=== PATIENT | male | born 1970 | race Caucasian/White ===

== ENCOUNTER 2017-12-16 09:36 | Emergency (ER) | payer OTHER ==
[~2017-12-16] VITALS: Ht 185.4 cm; Wt 103.0 kg
[~2017-12-16 09:36] MED LIST: XANAX1 MG PO
[2017-12-16 10:35] LABS: ABSOLUTE BASOPHIL COUNT 0.1 /CUMM (0.0-0.2); ABSOLUTE EOSINOPHIL COUNT 0.2 /CUMM (0.0-0.7); ABSOLUTE GRANULOCYTE CT 11.4 /CUMM (1.4-6.5); ABSOLUTE LYMPH COUNT 1.9 /CUMM (1.2-3.4); BASOPHIL % 0.4 % (0.0-2.0); EOSINOPHIL % 1.6 % (0-5); GRANULOCYTE % 78.1 % (42.2-75.2); HEMATOCRIT 47.5 % (42-52); MEAN CORPUSCULAR HGB 30.9 PG (27.0-31.0); MEAN CORPUSCULAR VOLUME 90.8 FL (80.0-94.0); MEAN PLATELET VOLUME 10.2 FL (7.4-10.4); PLATELET COUNT 224 /CUMM (130-400); RBC DISTRIBUTION WIDTH 13.6 % (11.5-14.5); RED BLOOD CELL CT 5.23 /CUMM (4.70-6.10); WHITE BLOOD CELL COUNT 14.6 /CUMM (4.8-10.8)
[2017-12-16] MEDS ORDERED: PREDNISONE20 M1 PO (11:16)
[2017-12-16] MEDS ORDERED: XANAX1 M1 PO (11:17)
[2017-12-16] MEDS ORDERED: SEROQUEL50 M1 PO (11:17)
[2017-12-16] MEDS ORDERED: FLUOXETINE HCL20 M2 PO (11:18)
--- NOTE | 2017-12-16 13:14 | ED GENERAL ADULT ---
History of Present Illness General Chief Complaint: Nausea, Vomiting, Diarrhea Stated Complaint: N/V/D Source: patient Exam Limitations: no limitations Vital Signs & Intake/Output Vital Signs & Intake/Output Vital Signs Date Time Temp Pulse Resp B/P B/P Pulse O2 O2 Flow FiO2 Mean Ox Delivery Rate 12/16 1418 97.6 54 18 112/61 97 Room Air 12/16 1007 Room Air 12/16 0948 96.4 54 18 142/77 99 Room Air Room Air Allergies Coded Allergies: NO KNOWN ALLERGIES (NONE 12/16/17) Reconcile Medications Alprazolam (Xanax) 1 MG TABLET 1 TAB PO 4 TIMES/DAY ANXIETY (Reported) Fluoxetine HCl 20 MG CAPSULE 1 CAP PO DAILY MENTAL HEALTH (Reported) Metoclopramide HCl (Reglan) 10 MG TABLET 1 TAB PO 4 TIMES/DAY PRN NAUSEA 30 minutes before meals and bedtime Oxycodone HCl/Acetaminophen (Percocet 5-325 MG Tablet) 5 MG-325 MG TABLET 1 TAB PO 4 TIMES/DAY PRN PAIN Prednisone 20 MG TABLET 1 TAB PO DAILY STEROID (Reported) Quetiapine Fumarate (Seroquel) 50 MG TABLET 1 TAB PO QPM SLEEP (Reported) Triage Note: PT TO ED "I HAD REALLY BAD POISON MYLENE AND THEY JUST UPPED MY PREDNISONE, HAD BAD HEADACHE SINCE LAST NIGHT, POUNDING HEADACHE, N/V/D SINCE LAST NIGHT". Triage Nurses Notes Reviewed? yes Onset: Abrupt Duration: day(s): (2-3), constant, continues in ED, getting worse Timing: single episode today Injury Environment: home Severity: mild, moderate Severity Numbers: 10 No Modifying Factors: none HPI: 47-year-old male history of anxiety and depression presents for evaluation of headaches nausea and vomiting. Patient reports he is currently being treated for poison mylene with prednisone 60 mg which she's been taking for several days. He reports since taking this he has had severe nausea and multiple episodes of vomiting and headaches. He reports the headache is located in the left sided temporal and parietal area and does not radiate. Described as pressure. He has been taking Tylenol at home without any improvement. He denies any slurred speech changes in vision fever abdominal pain back pain neck pain or head trauma. He's never had headaches like this in the past. He states his poison mylene has improved significantly since being on the prednisone. He also reports associated insomnia and agitation since starting steroids. (Narciso Girard) Past History Travel History Traveled to [place] past 21 day No Medical History Any Pertinent Medical History? see below for history Neurological: NONE EENT: NONE Cardiovascular: NONE Respiratory: NONE Gastrointestinal: NONE Hepatic: NONE Renal: NONE Musculoskeletal: NONE Psychiatric: anxiety, depression Endocrine: NONE Blood Disorders: NONE Cancer(s): NONE POLYSOMNOGRAPHY TECHNICIAN/Reproductive: NONE Surgical History Surgical History: non-contributory Psychosocial History What is your primary language Cymraes Tobacco Use: Never used ETOH Use: denies use Illicit Drug Use: denies illicit drug use Family History Hx Contributory? No (Narciso Girard) Review of Systems Review of Systems Constitutional: Reports: no symptoms. EENTM: Reports: no symptoms. Respiratory: Reports: no symptoms. Cardiovascular: Reports: no symptoms. GI: Reports: see HPI, nausea, vomiting. Genitourinary: Reports: no symptoms. Musculoskeletal: Reports: no symptoms. Skin: Reports: no symptoms. Neurological/Psychological: Reports: headache. Hematologic/Endocrine: Reports: no symptoms. Immunologic/Allergic: Reports: no symptoms. All Other Systems: Reviewed and Negative (Narciso Girard) Physical Exam Physical Exam General Appearance: well developed/nourished, no apparent distress, alert, awake Head: atraumatic, normal appearance, no tenderness over the temporal areas Eyes: Bilateral: normal appearance, PERRL, EOMI. 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 No CVA/TIA Diagnosis: No Sepsis Present: No Sepsis Focused Exam Completed? No (Narciso Girard) Progress Differential Diagnoses I considered the following diagnoses in my evaluation of the patient: [Migraine headache, cluster headache, temporal arteritis, intracranial hemorrhage intracranial mass aneurysm medication side effect] Plan of Care: Orders Procedure Date/time Status URINALYSIS 12/16 101 Complete TROPONIN LEVEL 12/16 101 Complete LIPASE 12/16 101 Complete WESTERGREN SED RATE 12/16 1010 Complete C-REACTIVE PROTEIN 12/16 101 Complete COMPREHENSIVE METABOLIC PANEL 12/16 101 Complete CBC WITHOUT DIFFERENTIAL 12/16 1009 Complete EKG 12/16 101 Active Laboratory Tests 12/16/17 1138: Urine Color YEL, Urine Clarity CLEAR, Urine pH 8.5 H, Ur Specific Cartwright 1.015 , Urine Protein NEG, Urine Ketones NEG, Urine Nitrite NEG, Urine Bilirubin NEG, Urine Urobilinogen 0.2, Ur Leukocyte Esterase NEG, Ur Microscopic EXAM NOT REQUIRED, Urine Hemoglobin NEG, Urine Glucose NEG 12/16/17 1025: Anion Gap 10, Estimated GFR > 60, BUN/Creatinine Ratio 18.9, Glucose 115 H, Calcium 9.6, Total Bilirubin 0.7, AST 19, ALT 27, Alkaline Phosphatase 102, Troponin I < 0.01, C-Reactive Prot, Quant < 0.5, Total Protein 7.6, Albumin 4.6, Globulin 3.0, Albumin/Globulin Ratio 1.5, Lipase 117, CBC w Diff NO MAN DIFF REQ , RBC 5.23, MCV 90.8, MCH 30.9, MCHC 34.0, RDW 13.6, MPV 10.2, Gran % 78.1 H, Lymphocytes % 12.9 L, Monocytes % 7.0, Eosinophils % 1.6, Basophils % 0.4, Absolute Granulocytes 11.4 H, Absolute Lymphocytes 1.9, Absolute Monocytes 1.0 H, Absolute Eosinophils 0.2, Absolute Basophils 0.1, ESR Westergren 3 Patient is here for evaluation of headaches nausea and vomiting. He currently is on steroids for poison mylene which started before symptoms started. He reports a left-sided temporal and parietal headache has been going on for 2 days and getting worse. The pain as 10 out of 10. Patient appears uncomfortable. He is neurologically intact. Labs EKG CTA ordered. Patient medicated with Reglan and Benadryl fluids and IV Tylenol. Lab work is unremarkable other than a mildly elevated white count which could be related to vomiting and steroids. Patient was also medicated with Toradol for additional headache. CTA of the head is negative for acute bleed but there is a 2.1 cm intraosseous mass over the left-sided parietal area near patient has pain. 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 Case was discussed with Dr. MCMAAHN neurosurgery who reviewed the CAT scan does not feel patient requires emergent treatment it was recommended he follow up with neurosurgery as an outpatient. Patient was given prescriptions for Reglan and Percocet to use for symptom control. He states he is feeling better. He remains neurologically intact. Discussed return precautions in detail patient agrees the plan Diagnostic Imaging: Viewed by Me: CT Scan. Discussed w/RAD: CT Scan. Radiology Impression: PATIENT: EFRAIN SCHUMACHER PRESENT AGE: 47 PATIENT ACCOUNT NO: [id number] : 70 LOCATION: [facility] ORDERING PHYSICIAN: Narciso DUNCAN SERVICE DATE: 12/16/17 EXAM TYPE: CAT - CT HEAD ANGIOGRAM EXAMINATION: CT HEAD ANGIOGRAM CLINICAL INFORMATION: Acute onset severe headache with vomiting. COMPARISON: No relevant prior imaging. TECHNIQUE: Sergeant At Arms images were obtained. A CT angiogram of the head was performed in the arterial phase after the intravenous administration of 95 mL Optiray 320. Pre and delayed postcontrast images of the head were also obtained. MIP reconstructions were generated in multiple orientations at the acquisition workstation. Multiple three-dimensional surface rendered images and maximum intensity projection images were generated on a dedicated 3-D lab workstation. Arterial stenoses are measured in accordance with NASCET criteria or similar method if applicable. Total exam dose-length product 2182.99 mGy-cm FINDINGS: Head: There is a somewhat heterogeneously enhancing intraosseous mass involving the left parietal bone near the coronal suture measuring 2.1 cm in maximal transaxial dimension. Its medial surface is dome-shaped and it bulges into the intracranial compartment. This finding is for instance best illustrated on axial image 34 of 72 series 5. There are no abnormal changes within the subcortical white matter of the adjacent brain. Otherwise no abnormal mass or enhancement visualized elsewhere within the intracranial compartment. No substantial intracranial mass effect and no midline shift. There is no acute hemorrhage. Headley-white matter differentiation is grossly preserved and there is no evidence of acute territorial infarct. CT angiogram head: The intracranial internal carotid arteries are normal. Intradural vertebral artery segments and basilar artery are normal. Anterior, middle, and posterior cerebral artery complexes are unremarkable. No high-grade stenosis or proximal occlusion is visualized within the intracranial vessels. IMPRESSION: There is an 2.1 cm intraosseous mass involving the left parietal bone with a dome-shaped component that bulges into the intracranial compartment. 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 The possibility of a calvarial metastasis however cannot be definitively excluded on the basis of this examination. DICTATED BY: Juanpablo Dumont MD DATE/TIME DICTATED:12/16/171325 WOOL BUYER:SHAHRAM DATE/ TIME TRANSCRIBED:12/16/171325 CONFIDENTIAL, DO NOT COPY WITHOUT APPROPRIATE AUTHORIZATION. <Electronically signed in Other Vendor System> SIGNED BY: Juanpablo Dumont MD 12/16/17 1345 Initial ED EKG: normal sinus rhythm, no ST T wave changes (Black PA,Narciso) Departure Departure Disposition: HOME OR SELF CARE Condition: Stable Clinical Impression Primary Impression: Headache Qualifiers: Headache type: unspecified Headache chronicity pattern: acute headache Intractability: not intractable Qualified Code: R51 - Headache Referrals: Sachin WILSON,Ludwig Remy (PCP/Family) Karol WILSON,Alex Haji Additional Instructions: Reglan for nausea Percocet for pain. Make a follow-up with Dr. Teague neurosurgeon as soon as possible. Monitor symptoms return with any concerns. Please note that there might be incidental findings in your evaluation that are unrelated to the current emergency department visit. Please notify your primary care doctor about this emergency department visit in order to obtain and review all of the testing performed so that these incidental findings can be monitored as needed. If you had an x-ray performed, please understand that some fractures or other findings may not be seen on the initial set of x-rays. If your symptoms persist you might need a repeat set of x-rays to check for such a fracture. If you had a laceration evaluated, please understand that foreign bodies such as glass or wood may not be visible to the naked eye or on plain x-rays. If the wound becomes red, swollen, increasingly more painful or if there is any drainage from the wound, please have it reevaluated by a physician for the possibility of a retained foreign body. If you're unable to follow up as outlined in the discharge instructions please return to the emergency department. Thank you for choosing the [facility] Emergency Department for your care. It was a pleasure to serve you today. Departure Forms: Customer Survey General Discharge Information Prescriptions: Current Visit Scripts Metoclopramide HCl (Reglan) 1 TAB PO 4 TIMES/DAY PRN NAUSEA #30 TAB 30 minutes before meals and bedtime Oxycodone HCl/Acetaminophen (Percocet 5-325 MG Tablet) 1 TAB PO 4 TIMES/DAY PRN PAIN #10 TAB (Narciso Girard) PA/METAL POURER Co-Sign Statement Statement: ED Attending supervision documentation- [] I saw and evaluated the patient. I have also reviewed all the pertinent lab results and diagnostic results. I agree with the findings and the plan of care as documented in the PA's/METAL POURER's documentation. [X] I have reviewed the ED Record and agree with the PA's/METAL POURER's documentation. [] Additions or exceptions (if any) to the PAs/METAL POURER's note and plan are summarized below: [] (John Panda DO) Critical Care Note Critical Care Note Critical Care Time: non-applicable (Narciso Girard)
--- NOTE | 2017-12-16 13:43 | CT SCAN REPORT ---
EXAMINATION: CT HEAD ANGIOGRAM CLINICAL INFORMATION: Acute onset severe headache with vomiting. COMPARISON: No relevant prior imaging. TECHNIQUE: Hospitality Specialist images were obtained. A CT angiogram of the head was performed in the arterial phase after the intravenous administration of 95 mL Optiray 320. Pre and delayed postcontrast images of the head were also obtained. MIP reconstructions were generated in multiple orientations at the acquisition workstation. Multiple three-dimensional surface rendered images and maximum intensity projection images were generated on a dedicated 3-D lab workstation. Arterial stenoses are measured in accordance with NASCET criteria or similar method if applicable. Total exam dose-length product 2182.99 mGy-cm FINDINGS: Head: There is a somewhat heterogeneously enhancing intraosseous mass involving the left parietal bone near the coronal suture measuring 2.1 cm in maximal transaxial dimension. Its medial surface is dome-shaped and it bulges into the intracranial compartment. This finding is for instance best illustrated on axial image 34 of 72 series 5. There are no abnormal changes within the subcortical white matter of the adjacent brain. Otherwise no abnormal mass or enhancement visualized elsewhere within the intracranial compartment. No substantial intracranial mass effect and no midline shift. There is no acute hemorrhage. Headley-white matter differentiation is grossly preserved and there is no evidence of acute territorial infarct. CT angiogram head: The intracranial internal carotid arteries are normal. Intradural vertebral artery segments and basilar artery are normal. Anterior, middle, and posterior cerebral artery complexes are unremarkable. No high-grade stenosis or proximal occlusion is visualized within the intracranial vessels. IMPRESSION: There is an 2.1 cm intraosseous mass involving the left parietal bone with a dome-shaped component that bulges into the intracranial compartment. 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 The possibility of a calvarial metastasis however cannot be definitively excluded on the basis of this examination.
[2017-12-16 14:18] VITALS: BP 112/61
[2017-12-16] MEDS ORDERED: PERCOCET 5-3251 EACH PO (14:31)
[2017-12-16] MEDS ORDERED: REGLAN10 M1 PO (14:31)
== END 2017-12-16 15:02 ==
LOC: ERH 09:36
PROVIDERS: Physician Assistant Medical
DX: R51 Headache (principal); F41.9 Anxiety disorder, unspecified; F32.9 Major depressive disorder, single episode, unspecified
CPT/HCPCS: 81003; 93005; 93010; 96374; 96375; J0131; J1200; J1885; J2765